=== PATIENT | female | born 1975 | race Caucasian/White ===

== ENCOUNTER 2018-10-20 21:00 | Observation (INO) ==
--- NOTE | 2018-10-20 21:32 | Emergency Department Note ---
Disposition Clinical Impression: Palpitations, Shortness of breath Fatigue Qualifiers: Fatigue type: unspecified Qualified Code(s): R53.83 - Other fatigue Disposition: Admitted As Inpatient Condition: Good Referrals: Magi Amezcua MD [Primary Care Provider] - Forms: ED Satisfaction Letter Time of Disposition: 23:07 General Adult HPI - General Chief complaint: ED Shortness of Breath/Dyspnea Stated complaint: Palpitations, Tachy, Dyspnea Time Seen by Provider: 10/20/18 21:12 Source: patient Mode of arrival: private vehicle Limitations: no limitations Nursing Notes Reviewed: Yes Vital Signs Reviewed: Yes - History of Present Illness HPI Narrative: 42F with Pmhx of hypothyroidism and adderral use with weeks of intermittent chest palpitations associated with mild SOB. She states it is getting worse. Today she had an episode of "extreme palpitations" and difficulty catching her breath that lasted approx 30m. This is the most "extreme" episode she's had. Denies hx of arrhythmia, had a holter monitor five years ago which did not show anything. No fam hx of cardiac issues. Denies misuse of adderall or synthroid. Pain Scale: 0 - Related Data Home Medications Medication Instructions Recorded Confirmed Dextroamphetamine/Amphetamine 20 mg PO DAILY 10/20/18 10/20/18 [Adderall 20 mg Tablet] Levothyroxine [Synthroid] 50 mcg PO DAILY 10/20/18 10/20/18 Spironolactone [Aldactone] 100 mg PO DAILY 10/20/18 10/20/18 Allergies Allergy/AdvReac Type Severity Reaction Status Date / Time nalbuphine [From Nubain] Allergy Hallucinati Verified 10/20/18 21:26 ng Sulfa (Sulfonamide Allergy Hives Verified 10/20/18 21:26 Antibiotics) Review of Systems: In addition to that documented in the HPI above, the additional ROS was obtained: Constitutional: Denies fevers or chills Eyes: Denies vision changes ENMT: Denies sore throat CV: Reports chest pain Resp: Reports SOB GI: Denies vomiting or diarrhea Reports nausea : Denies painful urination MSK: Denies recent trauma Skin: Denies new rashes Neuro: Denies new numbness or tingling or weakness Endocrine: Denies unexpected weight loss Heme: Denies bleeding disorders Past Medical History - Past Medical History Attestation: Yes The following information was validated with the patient. Medical history: Reports: thyroid disease Psychiatric history: Reports: ADHD - Social History Smoking Status: Never smoker Smokeless Tobacco Status: No Alcohol use: Reports: none Drug use: Reports: none Physical Exam General: A&O x 3. No acute distress. Well developed, well nourished. Head: atraumatic, normocephalic. ENT: No conjunctival injection, no scleral icterus. PERRLA. EOMI. Oropharynx non- erythematous. mucous membranes moist. Neuro: No focal deficits, no speech deficit, no facial droop, mentating well. BUE/BLE Str 5/5. Pulm: Lungs CTAB A/P. No wheezes, rales, ronchi. Cardio: RRR no m/r/g. No tachycardia while I am in the room. Chest not tender to palpation. Abd: Soft, non-distended. Normoactive bowel sounds. Non-tender to palpation. No guarding. Non rigid. Extremities: Radial pulses 2+ consuelo, dorsalis pedis/posterior tibialis 2+ consuelo. No LE edema. No cyanosis, clubbing. Skin: warm, dry, intact. No rashes. Psych: Appropriate mood and affect. Answers questions appropriately. Cooperative with exam. - General Limitations: no limitations General appearance: alert Course Vital Signs Temperature 98.8 F 10/20/18 21:08 Pulse Rate 110 10/20/18 21:08 Respiratory Rate 20 10/20/18 21:08 Blood Pressure 120/74 10/20/18 21:08 O2 Sat by Pulse Oximetry 98 10/20/18 21:08 Temperature 98.8 F 10/20/18 21:08 Pulse Rate 95 10/20/18 21:28 Respiratory Rate 20 10/20/18 21:28 Blood Pressure 131/90 10/20/18 21:28 O2 Sat by Pulse Oximetry 100 10/20/18 21:28 Oxygen Delivery Oxygen Delivery Room Air Medical Decision Making - [facility] Narrative Medical decision making narrative: 42-year-old female with hypothyroidism who takes Adderall that reports an episode of palpitations, chest pain, shortness of breath that happened at approximately 2030 this evening and lasted for approximately 30 minutes. Patient reports no history of similar episodes however she does report that she has had what she perceives to be palpitations over the last 2 weeks. Patient just acquired an apple watch and reports that her alcohol watch states that her heart rate was in the 200s earlier this evening. We will obtain cardiac workup including TSH, EKG, chest x-ray. Chest x-ray did not show any acute cardiopulmonary findings, EKG showed normal sinus rhythm, TSH was within normal limits, troponin was negative. Given the patient has been having episodes where her heart rate exceeds the 200s I believe that she could benefit from further inpatient workup with a cardiology consult. She was admitted to the hospitalist Dr. Boogie who agreed to accept the patient to his service. Results of the workup including any imaging and/or labwork was shared with the patient at bedside. Patient was given an opportunity to ask questions at bedside and all of their concerns were addressed. Patient verbalized understanding and agreement with plan of care. Pt remained stable while in the department. - Medical Records Medical records reviewed: Yes I reviewed the patient's medical records. - Lab Data Lab results reviewed: Yes I reviewed the patient's lab results. Result diagrams: 10/20/18 21:50 10/20/18 21:50 Lab Results 10/20/18 10/20/18 10/20/18 Range/Units 21:50 21:50 21:50 WBC 7.6 (4.3-11.1) K/mcL RBC 4.20 (3.82-4.97) M/mcL Hgb 13.1 (11.5-15.4) g/dL Hct 37.9 (35.3-44.9) % MCV 90.2 (83.0-100.0) fL MCH 31.2 (28.0-33.3) pg MCHC 34.6 (31.6-35.5) g/dL RDW 12.3 (11.5-14.5) % Plt Count 181 (140-400) K/mcL MPV 11.1 (9.4-12.4) fL Immature Gran % 0.3 (0-4) % Seg Neutrophils % 81.1 % Lymphocytes % 9.5 % Monocytes % 8.8 % Eosinophils % 0.3 % Basophils % 0.0 % Neutrophils # 6.2 (1.6-8.9) K/mcL Lymphocytes # 0.7 (0.6-4.6) K/mcL Monocytes # 0.7 (0.0-1.3) K/mcL Eosinophils # 0.0 (0.0-0.6) K/mcL Basophils # 0.0 (0.0-0.2) K/mcL D-Dimer < 215 (0-500) ng/mLFEU Sodium 136 (136-145) mEq/L Potassium 4.3 (3.5-5.1) mEq/L Chloride 105 (98-107) mEq/L Carbon Dioxide 19 L (23-29) mEq/L BUN 20 (6-20) mg/dL Creatinine 0.81 (0.60-1.20) mg/dL Est GFR ( Amer) > 60 (> 60) Est GFR (Non-Af Amer) > 60 (> 60) BUN/Creatinine Ratio 25 (6-26) Glucose 101 (70-105) mg/dL Calculated Osmolality 285 (280-300) Calcium 9.2 (8.6-10.3) mg/dL Troponin I < 0.03 (< 0.04) ng/mL TSH 1.477 (0.340-5.600) mcIU/mL Urine Color (Yellow) Urine Clarity (Clear) Urine pH (5.0-8.0) pH Units Ur Specific [place] (1.010-1.025) Urine Protein (Neg-Trace) mg/dL Urine Glucose (UA) (Normal) mg/dL Urine Ketones (Negative) mg/dL Urine Blood (Negative) Urine Nitrite (Negative) Urine Bilirubin (Negative) Urine Urobilinogen (Normal) mg/dL Ur Leukocyte Esterase (Negative) Ur Culture Indicated? (NO) Urine Test (Negative) 10/20/18 10/20/18 Range/Units 21:56 21:56 WBC (4.3-11.1) K/mcL RBC (3.82-4.97) M/mcL Hgb (11.5-15.4) g/dL Hct (35.3-44.9) % MCV (83.0-100.0) fL MCH (28.0-33.3) pg MCHC (31.6-35.5) g/dL RDW (11.5-14.5) % Plt Count (140-400) K/mcL MPV (9.4-12.4) fL Immature Gran % (0-4) % Seg Neutrophils % % Lymphocytes % % Monocytes % % Eosinophils % % Basophils % % Neutrophils # (1.6-8.9) K/mcL Lymphocytes # (0.6-4.6) K/mcL Monocytes # (0.0-1.3) K/mcL Eosinophils # (0.0-0.6) K/mcL Basophils # (0.0-0.2) K/mcL D-Dimer (0-500) ng/mLFEU Sodium (136-145) mEq/L Potassium (3.5-5.1) mEq/L Chloride (98-107) mEq/L Carbon Dioxide (23-29) mEq/L BUN (6-20) mg/dL Creatinine (0.60-1.20) mg/dL Est GFR ( Amer) (> 60) Est GFR (Non-Af Amer) (> 60) BUN/Creatinine Ratio (6-26) Glucose (70-105) mg/dL Calculated Osmolality (280-300) Calcium (8.6-10.3) mg/dL Troponin I (< 0.04) ng/mL TSH (0.340-5.600) mcIU/mL Urine Color Yellow (Yellow) Urine Clarity Clear (Clear) Urine pH 6.5 (5.0-8.0) pH Units Ur Specific [place] 1.009 L (1.010-1.025) Urine Protein Negative (Neg-Trace) mg/dL Urine Glucose (UA) Normal (Normal) mg/dL Urine Ketones Negative (Negative) mg/dL Urine Blood Negative (Negative) Urine Nitrite Negative (Negative) Urine Bilirubin Negative (Negative) Urine Urobilinogen Normal (Normal) mg/dL Ur Leukocyte Esterase Negative (Negative) Ur Culture Indicated? NO (NO) Urine Test Negative (Negative) - Radiology Data Radiology results reviewed: Yes I reviewed the patient's radiology results. Chest X-Ray 10/20/18 21:34 IMPRESSION: Negative chest. D/ / Ketan Mccormick MD / Ketan Mccormick MD Interpreting Provider: Ketan Mccormick MD - EKG Data EKG #1 EKG attestation: Yes I reviewed and interpreted this EKG. EKG results narrative: Heart rate 98, rhythm sinus, axis normal. Intervals within normal limits. No ST segment elevation or depression. No shortened [place] interval. No evidence of Brugada or WPW. When compared with previous EKG dated 11/23/2014 there are no significant changes.
[2018-10-20 22:07] LABS: Bilirubin,Urine Negative (Negative); Blood,Urine Negative (Negative); Clarity,Urine Clear (Clear); Color,Urine Yellow (Yellow); Glucose,Urine (UA) Normal (Normal); Ketones,Urine Negative (Negative); Leukocyte Esterase,Urine Negative (Negative); Nitrite,Urine Negative (Negative); PH,Urine 6.5 pH Units (5.0-8.0); Protein,Urine Negative (Neg-Trace); Specific Gravity,Urine 1.009 (1.010-1.025); Urobilinogen,Urine Normal (Normal)
[2018-10-20 22:10] LABS: Eosinophils % 0.3 %; Hematocrit 37.9 % (35.3-44.9); Hemoglobin 13.1 g/dL (11.5-15.4); Immature Granulocytes % 0.3 % (0-4); Lymphocytes # 0.7 K/mcL (0.6-4.6); Lymphocytes % 9.5 %; Mean Corpuscular HGB Conc 34.6 g/dL (31.6-35.5); Mean Corpuscular Hemoglobin 31.2 pg (28.0-33.3); Mean Corpuscular Volume 90.2 fL (83.0-100.0); Mean Platelet Volume 11.1 fL (9.4-12.4); Monocytes # 0.7 K/mcL (0.0-1.3); Monocytes % 8.8 %; Neutrophils # 6.2 K/mcL (1.6-8.9); Platelet Count 181 K/mcL (140-400); Red Cell Distribution Width 12.3 % (11.5-14.5); Segmented Neutrophils % 81.1 %; White Blood Count 7.6 K/mcL (4.3-11.1)
--- NOTE | 2018-10-20 22:44 | Emergency Department Note ---
Disposition Clinical Impression: Palpitations, Shortness of breath, Fatigue Disposition: Admitted As Inpatient Condition: Good Forms: ED Satisfaction Letter Time of Disposition: 22:44 General Adult HPI - General Chief complaint: ED Shortness of Breath/Dyspnea Stated complaint: Palpitations, Tachy, Dyspnea Time Seen by Provider: 10/20/18 21:12 Source: patient Mode of arrival: private vehicle Limitations: no limitations - History of Present Illness Pain Scale: 0 - Related Data Home Medications Medication Instructions Recorded Confirmed Dextroamphetamine/Amphetamine 20 mg PO DAILY 10/20/18 10/20/18 [Adderall 20 mg Tablet] Levothyroxine [Synthroid] 50 mcg PO DAILY 10/20/18 10/20/18 Spironolactone [Aldactone] 100 mg PO DAILY 10/20/18 10/20/18 Allergies Allergy/AdvReac Type Severity Reaction Status Date / Time nalbuphine [From Nubain] Allergy Hallucinati Verified 10/20/18 21:26 ng Sulfa (Sulfonamide Allergy Hives Verified 10/20/18 21:26 Antibiotics) Past Medical History - Past Medical History Medical history: Reports: thyroid disease Psychiatric history: Reports: ADHD - Social History Smoking Status: Never smoker Smokeless Tobacco Status: No Alcohol use: Reports: none Drug use: Reports: none Physical Exam - General Limitations: no limitations General appearance: alert Course Vital Signs Temperature 98.8 F 10/20/18 21:08 Pulse Rate 110 10/20/18 21:08 Respiratory Rate 20 10/20/18 21:08 Blood Pressure 120/74 10/20/18 21:08 O2 Sat by Pulse Oximetry 98 10/20/18 21:08 Temperature 98.8 F 10/20/18 21:08 Pulse Rate 95 10/20/18 21:28 Respiratory Rate 20 10/20/18 21:28 Blood Pressure 131/90 10/20/18 21:28 O2 Sat by Pulse Oximetry 100 10/20/18 21:28 Oxygen Delivery Oxygen Delivery Room Air Medical Decision Making - Medical Records Medical records reviewed: Yes I reviewed the patient's medical records. - Lab Data Lab results reviewed: Yes I reviewed the patient's lab results. Result diagrams: 10/20/18 21:50 Lab Results 10/20/18 10/20/18 10/20/18 Range/Units 21:50 21:50 21:56 WBC 7.6 (4.3-11.1) K/mcL RBC 4.20 (3.82-4.97) M/mcL Hgb 13.1 (11.5-15.4) g/dL Hct 37.9 (35.3-44.9) % MCV 90.2 (83.0-100.0) fL MCH 31.2 (28.0-33.3) pg MCHC 34.6 (31.6-35.5) g/dL RDW 12.3 (11.5-14.5) % Plt Count 181 (140-400) K/mcL MPV 11.1 (9.4-12.4) fL Immature Gran % 0.3 (0-4) % Seg Neutrophils % 81.1 % Lymphocytes % 9.5 % Monocytes % 8.8 % Eosinophils % 0.3 % Basophils % 0.0 % Neutrophils # 6.2 (1.6-8.9) K/mcL Lymphocytes # 0.7 (0.6-4.6) K/mcL Monocytes # 0.7 (0.0-1.3) K/mcL Eosinophils # 0.0 (0.0-0.6) K/mcL Basophils # 0.0 (0.0-0.2) K/mcL D-Dimer < 215 (0-500) ng/mLFEU Urine Color Yellow (Yellow) Urine Clarity Clear (Clear) Urine pH 6.5 (5.0-8.0) pH Units Ur Specific [place] 1.009 L (1.010-1.025) Urine Protein Negative (Neg-Trace) mg/dL Urine Glucose (UA) Normal (Normal) mg/dL Urine Ketones Negative (Negative) mg/dL Urine Blood Negative (Negative) Urine Nitrite Negative (Negative) Urine Bilirubin Negative (Negative) Urine Urobilinogen Normal (Normal) mg/dL Ur Leukocyte Esterase Negative (Negative) Ur Culture Indicated? NO (NO) Urine Test (Negative) 10/20/18 Range/Units 21:56 WBC (4.3-11.1) K/mcL RBC (3.82-4.97) M/mcL Hgb (11.5-15.4) g/dL Hct (35.3-44.9) % MCV (83.0-100.0) fL MCH (28.0-33.3) pg MCHC (31.6-35.5) g/dL RDW (11.5-14.5) % Plt Count (140-400) K/mcL MPV (9.4-12.4) fL Immature Gran % (0-4) % Seg Neutrophils % % Lymphocytes % % Monocytes % % Eosinophils % % Basophils % % Neutrophils # (1.6-8.9) K/mcL Lymphocytes # (0.6-4.6) K/mcL Monocytes # (0.0-1.3) K/mcL Eosinophils # (0.0-0.6) K/mcL Basophils # (0.0-0.2) K/mcL D-Dimer (0-500) ng/mLFEU Urine Color (Yellow) Urine Clarity (Clear) Urine pH (5.0-8.0) pH Units Ur Specific [place] (1.010-1.025) Urine Protein (Neg-Trace) mg/dL Urine Glucose (UA) (Normal) mg/dL Urine Ketones (Negative) mg/dL Urine Blood (Negative) Urine Nitrite (Negative) Urine Bilirubin (Negative) Urine Urobilinogen (Normal) mg/dL Ur Leukocyte Esterase (Negative) Ur Culture Indicated? (NO) Urine Test Negative (Negative) - Radiology Data Radiology results reviewed: Yes I reviewed the patient's radiology results. Attestation Statement - Attestation Attestation: I examined this patient and my medical decision-making was reviewed with the Resident Physician. I agree with the documented findings, disposition and treatment plan as described except to the extent set forth below. 42-year-old female presenting to emergency room for palpitations and shortness of breath. She states is been ongoing for the past couple weeks. She states at times her heart rate would just recently been to the 150 range. She does take Adderall for ADD. She is been on this for almost one year. Tonight she felt more short of breath with the palpitations and her watch said that her heart rate was running to 10. She thought extremely palpitations with this. I wonder she was in SVT. I feel patient should be admitted because she still feels extremely fatigued over the past 2 weeks in association with shortness of breath and palpitations. Thus far, her labs are okay. Her d-dimer was negative. Chest x-ray was negative. EKG documentation was performed by the resident. I did review the EKG and agree with her documentation and interpretation
[2018-10-20 22:51] LABS: BUN/Creatinine Ratio 25 (6-26); Blood Urea Nitrogen 20 mg/dL (6-20); Calcium 9.2 mg/dL (8.6-10.3); Carbon Dioxide 19 mEq/L (23-29); Chloride 105 mEq/L (98-107); Glucose 101 mg/dL (70-105); Osmolality,Calculated 285 (280-300); Potassium 4.3 mEq/L (3.5-5.1); Sodium 136 mEq/L (136-145); Thyroid Stimulating Hormone 1.477 mcIU/mL (0.340-5.600); Troponin I < 0.03 ng/mL (< 0.04); eGFR For African Americans > 60 (> 60); eGFR For Non-African Americans > 60 (> 60)
[2018-10-21] MEDS ORDERED: Naloxone 0.4 MG/ML INJ IVP PRN (00:17)
--- NOTE | 2018-10-21 00:20 | Internal Med History&Physical ---
Date of Encounter: 10/21/18 Time of Encounter: 00:19 Internal Medicine - H&P: HPI Chief complaint: Palpitations History of present illness: Ms. Mar is a 42 year old female with a past medical history of hypothyroidism who presented to the ED due to complaints of palpitations and shortness of breath. Patient reporting for the past 2 weeks she has had intermittent episodes of palpitations. However, around 8:30 this evening patient had a similar episode shortly after a brisk walk with a friend which occurred while she was driving home. She states that this time it felt like her heart was beating out of her chest and was having shortness of breath which was atypical for these episodes. Her shortness of breath was described as being similar feeling winded after a sprint. According to her apple watch her heart rate was over 200. When she returned home, her watch continued to report an elevated heart rate and she continued to experience shortness of breath and sensation of a pounding heart beat. At this point she decided to come in for further evaluation. Patient cannot identify any particular trigger stating that it can occur at rest or with exertion. No reports of chest pain, nausea, vomiting or dizziness/lightheadedness. No reports of recent illness. No other symptoms aside from recent heartburn. Patient has been taking Adderall 20 mg s november of last year. She does drink her normal cup of coffee. No other recent changes in medications. Patient denies any recent travel, leg swelling or prior history of blood clots. Denies drug use. Patient has had prior workup for palpitations and had a Holter monitor study performed 2014 which showed evidence of sinus tachycardia with occasional heart rates in the 150s. Patient reports symptoms seem to have subsided shortly after arrival to the ED. Chest x-ray did not show any acute cardiopulmonary findings, EKG showed normal sinus rhythm with a heart rate of 98, TSH was within normal limits, troponin was negative. D-dimer was less than 500. Past Med Surg Social Fam HX - Past Medical History Medical history: thyroid disease Psychiatric history: ADHD - Past Surgical History Additional surgical history: d & C. septoplasty - Social History Smoking Status: Never smoker Smokeless Tobacco Status: No Alcohol use: none Drug use: none - Family History Mother Living Status: Still Living Hx Family Medical Disorders: Yes (hypothyroidism) Father Hx Family Cardiac Disorders: Yes Hx Family Autoimmune Disorders: Yes Hx Family Medical Disorders: Yes (anemia/kidney dx) Internal Medicine - H&P: Meds Dextroamphetamine/Amphetamine [Adderall 20 mg Tablet] 20 mg PO DAILY 10/20/18 [History] Levothyroxine [Synthroid] 50 mcg PO DAILY 10/20/18 [History] Spironolactone [Aldactone] 100 mg PO DAILY 10/20/18 [History] Allergy/AdvReac Type Severity Reaction Status Date / Time nalbuphine [From Nubain] Allergy Hallucinati Verified 10/20/18 21:26 ng Sulfa (Sulfonamide Allergy Hives Verified 10/20/18 21:26 Antibiotics) All Systems PM: A 10-system review of systems was performed and is negative for pertinent findings except as documented above in the HPI. - Constitutional Constitutional: no chills, no fever(s), no night sweats - EENT Eyes: no change in vision, no discharge, no pain, no photophobia Ears: no ear discharge, no ear pain, no tinnitus Nose, mouth and throat: no dysphagia, no nasal discharge, no neck pain, no sore throat - Cardiovascular Cardiovascular ROS IM: no chest pain, no diaphoresis, no dyspnea, no lightheadedness, no palpitations, no syncope - Respiratory Respiratory: no cough, no dyspnea, no wheezing, no excessive phlegm production - Gastrointestinal Gastrointestinal: no abdominal pain, no diarrhea, no hematemesis, no hematochezia, no melena, no nausea, no vomiting - Genitourinary Genitourinary: no change in urinary stream, no dysuria, no flank pain, no hematuria - Musculoskeletal Musculoskeletal ROS IM: no numbness, no tingling - Integumentary Integumentary IM: no rash, no unusual bruising - Neurological Neurological ROS: no confusion, no convulsions, no focal weakness, no numbness, no tingling, no tremor(s) - Hematologic/Lymphatic Hematologic/Lymphatic: no easy bruising - Constitutional Vitals: Temp Pulse Resp BP Pulse Ox 98.8 F 86 20 110/76 99 10/20/18 21:08 10/21/18 00:00 10/21/18 00:00 10/21/18 00:00 10/21/18 00:00 Exam: General: Alert and oriented 3 lying in bed in no acute distress Skin:Normal color, no rash, no lesions. HEENT:EOM, pupils equal, round and reactive. Cardiovascular:Normal S1 & S2, no rubs, murmurs or gallops. No JVD. Pulse regular. Lungs:Normal breath sounds, no wheezes or crackles. Abdomen:Soft, non-tender, no rigidity. Extremities:No deformity, no edema or tenderness, no joint swelling or clubbing. Neurological:Normal cognition and motor skills. Pulses:Carotid and radial pulses normal +2. Rest of the physical exam is non contributory Internal Med - H&P Results - Labs CBC & Chem 7: 10/20/18 21:50 10/20/18 21:50 Labs: Short CBC 10/20/18 Range/Units 21:50 WBC 7.6 (4.3-11.1) K/mcL Hgb 13.1 (11.5-15.4) g/dL Hct 37.9 (35.3-44.9) % Plt Count 181 (140-400) K/mcL Neutrophils # 6.2 (1.6-8.9) K/mcL BMP 10/20/18 21:50 Sodium 136 Potassium 4.3 Chloride 105 Carbon Dioxide 19 L BUN 20 Creatinine 0.81 Glucose 101 Calcium 9.2 Cardiac Enzymes 10/20/18 Range/Units 21:50 Troponin I < 0.03 (< 0.04) ng/mL Urine 10/20/18 Range/Units 21:56 Urine Color Yellow (Yellow) Urine Clarity Clear (Clear) Urine pH 6.5 (5.0-8.0) pH Units Ur Specific [place] 1.009 L (1.010-1.025) Urine Protein Negative (Neg-Trace) mg/dL Urine Glucose (UA) Normal (Normal) mg/dL - Impressions ITS Impressions Chest X-Ray 10/20/18 21:34 IMPRESSION: Negative chest. D/ / Ketan Mccormick MD / Ketan Mccormick MD Interpreting Provider: Ketan Mccormick MD - Assessment and Plan (1) Palpitations Current Visit: Yes Status: Acute Assessment and plan: Patient presenting with intermittent episodes of palpitations with shortness of breath. Patient concerned because of new symptoms of associated shortness of breath. EKG showed Heart rate 98, rhythm sinus, axis normal. No ST segment elevation or depression. No shortened [place] interval. When compared with previous EKG dated 11/23/2014 there are no significant changes.Patient had previous workup in 2015 with a Holter monitor showing episodes of sinus tachycardia with a heart rate as high as 150. Patient is currently on Adderall but has been on it for the past year with no recent changes in dose. Patient does drink coffee every morning. Chest x-ray did not show any acute cardiopulmonary findings, TSH was within normal limits, troponin was negative. Low suspicion for PE. Etiology unclear but may be secondary to inappropriate sinus tachycardia. -Telemetry -We will obtain echocardiogram to evaluate for any structural abnormalities. -Consult cardiology (2) Shortness of breath Current Visit: Yes Status: Acute Assessment and plan: Patient presenting with shortness of breath in the setting of reported palpitations. Chest x-ray normal. No evidence of PE. Currently resolved. -We will monitor. (3) Hypothyroidism Current Visit: Yes Status: Acute Assessment and plan: TSH within normal limits. -Continue home dose of levothyroxine Qualifiers: Hypothyroidism type: unspecified Qualified Code(s): E03.9 - Hypothyroidism, unspecified (4) DVT prophylaxis Current Visit: Yes Status: Acute Assessment and plan: Ambulate ad louie. - Time Spent With Patient Total time spent is greater than 50% in coordination of care (as documented) at patient's floor/unit and/or counseling patient:
--- NOTE | 2018-10-21 10:31 | Cardiology Consult Note ---
Date of Encounter: 10/21/18 Time of Encounter: 09:00 Assessment and Plan (1) Palpitations Current Visit: Yes Status: Acute Per cardiology: -Presents with palpitations, suspect possible SVT. -ECG with SR. -No events noted on telemetry. -Echo pending. -TSH, K within normal limits. -Holter 2015 with SR, ST. -Agree with TTE. -Will check standard stress test. -Continue telemetry. -Recommend event monitor at discharge, -Further recs pending testing. (2) Hypothyroidism Current Visit: Yes Status: Chronic Per cardiology: -Known hypothyroidism. -TSH WNL. -Management per primary service. Qualifiers: Hypothyroidism type: unspecified Qualified Code(s): E03.9 - Hypothyroidism, unspecified Discussion w patient/family: The assessment and plan as outlined above was discussed with the patient and/or family members who expressed understanding and agreement. All questions were answered. Thank you for involving us in the care of your patient. Please call with any questions. Discussed and reviewed with History of Present Illness Consult date: 10/21/18 Requesting physician: Stan Reis Consult reason: palpitations Chief complaint: palpitations History of present illness: Ms. Mar is a 42 year old female with a relevant past medical history of hypothyroidism on synthroid, ADHD on adderall, who presented to [facility] with palpitations. Patient states she has intermittent palpitations for several years that would only last for a few minutes. Patient states she has been having recurrent palpitations for the past couple of weeks. Patient states yesterday, after walking 4 miles, she was sitting in her car. States she noticed her heart was racing and felt like it was going to "pound out of my chest." Patient states she looked at her apple watch and it said her HR was >200. Reports associated shortness of breath. Patient states she drove home and after about 30 minutes "heart racing" subsided. Patient denies recurrence of palpitations. Today, denies complaints. Past Med Surg Social Fam HX - Past Medical History Attestation: Yes The following information was validated with the patient. Source: patient, old records reviewed Medical history: thyroid disease Psychiatric history: ADHD - Past Surgical History Additional surgical history: d & C. septoplasty - Social History Smoking Status: Never smoker Smokeless Tobacco Status: No Alcohol use: none Drug use: none - Family History Mother Living Status: Still Living Hx Family Medical Disorders: Yes (hypothyroidism) Father Hx Family Cardiac Disorders: Yes Hx Family Autoimmune Disorders: Yes Hx Family Medical Disorders: Yes (anemia/kidney dx) Medications and Allergies Dextroamphetamine/Amphetamine [Adderall 20 mg Tablet] 20 mg PO DAILY 10/20/18 [History] Levothyroxine [Synthroid] 50 mcg PO DAILY 10/20/18 [History] Spironolactone [Aldactone] 100 mg PO DAILY 10/20/18 [History] Allergy/AdvReac Type Severity Reaction Status Date / Time nalbuphine [From Nubain] Allergy Hallucinati Verified 10/20/18 21:26 ng Sulfa (Sulfonamide Allergy Hives Verified 10/20/18 21:26 Antibiotics) All Systems Review: The remainder of the systems were reviewed and are negative - Cardiovascular Cardiovascular: as per HPI, palpitations Physical Examination Vital Signs, Last 4 Hours Temp Pulse Resp BP 10/21/18 07:06 98.1 F 66 19 112/71 General: Conversant, No Apparent Distress HEENT: Atraumatic, Normocephaly, Mucus Membranes Moist Neck: No JVD, Normal carotid pulses Cardiac: Reg Rate and Rhythm, Normal S1 and S2, No Murmur Lungs: Normal Breath Sounds, No Wheeze, Rales, Rhonchi Neuro: Alert and responsive, No focal deficits noted Abdomen: Soft, Non-Tender Skin: No rashes noted on visualized skin Musculoskeletal: No Chest Wall Tenderness Extremities: No Clubbing, No Cyanosis, No Edema, Normal Pulses Results 10/20/18 21:50 10/20/18 21:50 Lab Results Impressions Chest X-Ray 10/20/18 21:34 IMPRESSION: Negative chest. D/ / Ketan Mccormick MD / Ketan Mccromick MD Interpreting Provider: Ketan Mccormick MD Active Medications Levothyroxine Sodium (Synthroid) 50 mcg PO 0630 JENNYFER Stop: 04/22/19 06:31 Last Admin: 10/21/18 05:39 Dose: 50 mcg Documented by: Naloxone HCl (Narcan) 0.4 mg IVP Q2MPRN PRN PRN Reason: SEE COMMENTS Stop: 04/22/19 00:18 Spironolactone (Aldactone) 100 mg PO DAILY [facility] Stop: 04/22/19 09:01 Last Admin: 10/21/18 08:42 Dose: 100 mg Documented by: Laboratory Tests 10/20/18 10/20/18 21:50 21:50 Hgb 13.1 Potassium 4.3 Troponin I < 0.03 TSH 1.477 - Imaging and Cardiology Echo: pending - EKG Interpretation EKG results cardiology: personally reviewed (ECG with SR.), other (Telemetry reviewed with SR, average HR previous 12 hours noted to be 79. PVCs, PACs noted.) Consult Discharge Plan - Plan Referrals: Magi Amezcua MD [Primary Care Provider] -
--- NOTE | 2018-10-21 14:59 | Event Note ---
Date of Encounter: 10/21/18 Time of Encounter: 14:58 - Cardiology Event Note TTE with LVEF preserved, no wall motion abnormalities, mild valvular disease noted. Standard stress test negative for ischemia, no arrythmias noted. Will order 4 week event monitor at discharge. Cardiology will sign off, will arrange outpatient follow up.
--- NOTE | 2018-10-21 15:37 | Discharge Summary ---
- NOTES TO OUTPATIENT PROVIDER Notes to Outpatient Provider: Posthospital discharge for palpitations patient will need cardiology outpatient follow-up for Holter monitor. Also recommend patient if patient can be switched from Adderall to Strattera for ADHD since stress test, echocardiogram does not appear to show cardiac abnormality Date of Encounter: 10/21/18 Time of Encounter: 15:32 - Discharge Diagnosis (1) Palpitations Priority: Primary Status: Acute Assessment and Plan: Patient presenting with intermittent episodes of palpitations with shortness of breath. Patient concerned because of new symptoms of associated shortness of breath. EKG showed Heart rate 98, rhythm sinus, axis normal. No ST segment elevation or depression. No shortened OR interval. When compared with previous EKG dated 11/23/2014 there are no significant changes.Patient had previous workup in 2014 with a Holter monitor showing episodes of sinus tachycardia with a heart rate as high as 150. Patient is currently on Adderall but has been on it for the past year with no recent changes in dose. Patient does drink coffee every morning. Chest x-ray did not show any acute cardiopulmonary findings, TSH was within normal limits, troponin was negative. Low suspicion for PE. Etiology unclear but may be secondary to inappropriate sinus tachycardia. She was evaluated by cardiology she had a stress test and echocardiogram were all unrevealing a plan for patient to go have a Holter monitor. Patient of note is on Adderall stimulant that was started about a year ago discussed with karl shaw about alternate medications for ADHD if holter monitor this to show any electrophysiologic cardiac abnormality (2) Hypothyroidism Priority: Secondary Status: Chronic Assessment and Plan: TSH within normal limits. -Continue home dose of levothyroxine Qualifiers: Hypothyroidism type: unspecified Qualified Code(s): E03.9 - Hypothyroidism, unspecified (3) DVT prophylaxis Priority: Secondary Status: Acute Assessment and Plan: She has been discharged today Hospital course: Ms. Mar is a 42 year old female hospitalized palpitation, initial workup including TSH and laboratory workup were all unrevealing. She was evaluated by cardiology she had a stress test and echocardiogram were all unrevealing a plan for patient to go have a Holter monitor. Patient of note is on Adderall a stimulant that was started about a year ago discussed with patient about alternate medications for ADHD like strattera if holter monitor this to show any electrophysiologic cardiac abnormality. She is to follow up with surgical garment fitter as an out patient Discharge discussed with: patient, family, nurse, senior financial consultant - Time Spent with Patient Total time spent providing and/or coordinating discharge services: 35 mins Specific discharge activities: Please limited all caffeinated beverages intake follow-up with surgical garment fitter as discussed for the Holter monitoring. Talk to your primary care physician regarding alternative treatment for ADHD - Discharge Medications Prescriptions: Continued Levothyroxine [Synthroid] 50 mcg PO DAILY Dextroamphetamine/Amphetamine [Adderall 20 mg Tablet] 20 mg PO DAILY Spironolactone [Aldactone] 100 mg PO DAILY Home Medications: Dextroamphetamine/Amphetamine [Adderall 20 mg Tablet] 20 mg PO DAILY 10/20/18 [History] Levothyroxine [Synthroid] 50 mcg PO DAILY 10/20/18 [History] Spironolactone [Aldactone] 100 mg PO DAILY 10/20/18 [History] Allergies/Adverse Reactions: Allergy/AdvReac Type Severity Reaction Status Date / Time nalbuphine [From Nubain] Allergy Hallucinati Verified 10/20/18 21:26 ng Sulfa (Sulfonamide Allergy Hives Verified 10/20/18 21:26 Antibiotics) Date of admission: 10/20/18 23:25 Primary care physician: Magi Amezcua MD Consults: 10/21/18 02:18 Consult to Cardiology [CONS] Routine Comment: Consulting Provider: Cardiology Denisha Reason for Consult: Palpatations Call Completed: No Discharging clinician: Lorraine Kumar Anticipated date of discharge: 10/21/18 - Constitutional Vitals: Temp Pulse Resp BP Pulse Ox 98.4 F 79 17 119/71 98 10/21/18 12:16 10/21/18 12:16 10/21/18 12:16 10/21/18 12:16 10/21/18 04:26 Exam: GEN: NAD, A&O x 3, Pleasant and conversant, , female friend at her bedside SKIN: Crocker warm acyanotic not jaundice HEART: RRR, no murmurs LUNGS: CTA no wheeze or crackles, overall non labored ABDOMEN; Soft, non tender or distended, BS x 4 normactive EXT: No LE edema, Pedal pulses 1+, radial pulses 2+ PSYCH: Mood and affect is appropriate - Patient Status Disposition: Home, Self-Care Condition: Good Functional capacity at discharge: independent ambulation Overall status at discharge: patient is back to baseline - Discharge Instructions Follow Up With: Magi Amezcua MD [Primary Care Provider] - - Diet and Activity Activity: resume usual activities as tolerated Diet: other (low cardiac stimulant diet- minimize caffeinated beverages)
[2018-10-21 15:42] VITALS: BP 114/67
== END 2018-10-21 16:43 | disposition home or self-care (01) ==
LOC: EMEROOARM 21:00 → 2ANU 21:00 → SUATTDRO 23:25 → 2ANU 10-21 00:48
PROVIDERS: ADMIT Internal Medicine; ATTEND Pharmacist